=== PATIENT | female | born 1995 | race Caucasian/White ===

== ENCOUNTER 2021-01-13 10:40 | Emergency (ER) | payer SELFPAY ==
[~2021-01-13] VITALS: Ht 167.6 cm; Wt 54.4 kg
[2021-01-13] MEDS ORDERED: DEXTROSE 50% 50 ML DISP.SYRIN IV ONE (11:00)
[2021-01-13] MEDS ORDERED: DEXTROSE 50% 50 ML DISP.SYRIN ONE (11:01)
--- NOTE | 2021-01-13 11:15 | NUR ---
Pt is difficult stick for IV and blood draw.
[2021-01-13 11:47] LABS: ALANINE AMINOTRANSFERASE 8 U/L (14-59); ALKALINE PHOSPHATASE 68 U/L (50-136); ASPARTATE AMINOTRANSFERASE 13 U/L (15-37); BILIRUBIN,DIRECT 0.1 mg/dL (0.0-0.2); BILIRUBIN,TOTAL 0.2 mg/dL (0.2-1.0); CARBON DIOXIDE 24 mmol/L (21-32); CHLORIDE 105 mmol/L (98-107); CREATININE 0.7 mg/dL (0.6-1.3); GLUCOSE 113 mg/dL (74-106); TOTAL PROTEIN, SERUM 7.6 g/dL (6.4-8.2); UREA NITROGEN, BLOOD 13 mg/dL (7-18)
[2021-01-13 12:07] LABS: ACETAMINOPHEN < 2.0 ug/mL (10-30)
--- NOTE | 2021-01-13 12:33 | NUR ---
Inserted wilson catheter using aseptic technique, pt fought insertion, secured to leg.
[2021-01-13 12:53] LABS: *BILIRUBIN,URIN NEGATIVE (NEGATIVE); *BLOOD, URINE 3+ (NEGATIVE); *CLARITY,URINE CLOUDY (CLEAR); *COLOR,URINE YELLOW (YELLOW); *KETONES,URINE NEGATIVE (NEGATIVE); *UROBILINOGEN,URINE 0.2 E.U./dl (NORMAL); LEUKOCYTE ESTERASE ,URINE 1+ (NEGATIVE); NITRITE, URINE POSITIVE (NEGATIVE); UGLUCOSE TRACE (NEGATIVE)
[2021-01-13 13:06] LABS: *AMPHETAMINE, URINE POSITIVE (NEGATIVE); *CANNABINOID, URINE POSITIVE (NEGATIVE); *COCCAINE, URINE NEGATIVE (NEGATIVE); *OPIATE, URINE NEGATIVE (NEGATIVE); *PHENCYCLIDINE SCREEN,URINE NEGATIVE (NEGATIVE)
[2021-01-13 14:28] LABS: RBC,URINE 20-50 /HPF (0-3)
[2021-01-13 14:29] LABS: BACTERIA,URINE MANY /HPF (NONE SEEN); MUCUS,URINE FEW /LPF (0-FEW); SQUAMOUS EPITHELIAL CELL,UR MODERATE /HPF (NONE SEEN); URINE AMORPHOUS URATE MANY /HPF; WBC,URINE 80-100 /HPF (0-3)
[2021-01-13 14:45] LABS: ETHANOL < 3 MG/DL (0-0)
--- NOTE | 2021-01-13 14:51 | NUR ---
[employer] Operator note: Patient is not alert, not interviewable at this time. [employer] Operator will remain available to follow-up with the patient, as needed.
[2021-01-13 14:57] LABS: THYROID STIMULATING HORMONE 1.934 mIU/mL (0.358-3.740)
--- NOTE | 2021-01-13 16:04 | NUR ---
Pt difficult to arouse, started to answer questions, faded off to sleep. Now A&Ox2.
--- NOTE | 2021-01-13 19:15 | NUR ---
Pt refused blood sugar recheck after dextrose IV.
[2021-01-13] MEDS ORDERED: NITR-104 PO (19:45)
[2021-01-13] MEDS ORDERED: NITROFURANTOIN/NITROFURAN MAC 100 MG CAPSULE PO ONE (19:45)
--- NOTE | 2021-01-13 20:02 | NUR ---
Patient wanting to leave AMA. Patient A/Ox3, ambulatory with stready gait. Dr Smith into re eval patient.
--- NOTE | 2021-01-13 20:04 | NUR ---
IV removed. Catheter intact and site benign. Pressure and 4x4 gauze applied to site. No bleeding noted.
--- NOTE | 2021-01-13 20:15 | NUR ---
Patient does not wish to proceed with medical care recommended by Dr. Azevedo. Patient given information related to possible complications, up to and including , which could occur as a result of leaving the hospital at this time. Patient verbalizes understanding of risks involved due to leaving against medical advice. Patient has signed AMA form. Pt refused homeless packet. Noted to be A/O x3, denies any pain/discomfort. IV site removed, wilson cath removed. Steady gait. No SOB or labored breathing.
[2021-01-13 20:16] LABS: HEMATOCRIT 38.4 % (31.2-41.9); MEAN CORPUSCULAR HEMOGLOBIN 25.9 uug (24.7-32.8); MEAN CORPUSCULAR VOLUME 80.7 fL (75.5-95.3); PLATELET COUNT (AUTO) 298 K/uL (179-408)
[2021-01-13 20:34] VITALS: BP 133/82
== END 2021-01-13 20:20 | disposition left against medical advice (07) ==
LOC: ER 10:40 → EDBD 10:40 → ER 20:20
DX: E16.2 Hypoglycemia, unspecified (principal); F12.20 Cannabis dependence, uncomplicated; F15.229 Other stimulant dependence with intoxication, unspecified; F13.20 Sedative, hypnotic or anxiolytic dependence, uncomplicated; E44.0 Moderate protein-calorie malnutrition; N39.0 Urinary tract infection, site not specified; F17.290 Nicotine dependence, other tobacco product, uncomplicated; R94.31 Abnormal electrocardiogram [ECG] [EKG]; G93.40 Encephalopathy, unspecified; Z20.822 Contact with and (suspected) exposure to COVID-19
CPT/HCPCS: 36415; 70450; 71045; 80048; 80076; 80299; 80307; 80320; 81001; 82140; 82962; 84443; 85025; 85730; 87426; 93005; 96374; 99285; 99406; J3490; A4663; G0480